=== PATIENT | male | born 1965 | race Caucasian/White ===

== ENCOUNTER → 2017-04-14 | Outpatient (CLI) | payer OTHER ==
[~2017-04-14] MED LIST: ASPI-621 PO; ATOR-2 PO; CHLO25TA PO; GLIM2TAB2 PO; NEBI10TA3 PO; OMEP-110 PO; PRAS10TA4 PO; SITA1TAB5 PO; VALS320T2 PO
== END | disposition home or self-care (01) ==
LOC: CFH 08:31
PROVIDERS: ATTEND Internal Medicine Cardiovascular Disease
DX: I25.10 Atherosclerotic heart disease of native coronary artery without angina pectoris (principal)
CPT/HCPCS: 93306

== ENCOUNTER 2019-06-05 08:35 | Outpatient (CLI) | payer OTHER ==
[~2019-06-05 08:35] MED LIST changes: +AMLO10TA8 PO; -ASPI-621 PO; +ASPI81TA45 PO; +DAPA1TAB3 PO; -GLIM2TAB2 PO; +GLIM2TAB3 PO
== END 2019-06-05 23:59 | disposition home or self-care (01) ==
LOC: CFH 08:35
PROVIDERS: ATTEND Nurse Practitioner Family
DX: K76.0 Fatty (change of) liver, not elsewhere classified (principal); R16.2 Hepatomegaly with splenomegaly, not elsewhere classified; E11.9 Type 2 diabetes mellitus without complications; Z83.3 Family history of diabetes mellitus; Z82.49 Family history of ischemic heart disease and other diseases of the circulatory system; Z80.9 Family history of malignant neoplasm, unspecified
CPT/HCPCS: 76700